=== PATIENT | male | born 1960 | race Caucasian/White ===

== ENCOUNTER → 2016-08-23 15:11 | Outpatient (CLI) | payer MEDICAID ==
[~2016-08-23 15:11] MED LIST: CYCLOBENZAPRINE10 MG PO; HYDROCHLOROTH12.5 M1 PO; HYDROCODON-ACE1 EAC7 PO; PRINIVIL20 MG PO
== END | disposition home or self-care (01) ==
LOC: D.LABREF 15:11
DX: N20.0 Calculus of kidney (principal)

== ENCOUNTER → 2016-08-27 09:24 | Outpatient (CLI) | payer MEDICAID | END | disposition home or self-care (01) | LOC: D.US 09:24 | DX: N28.89 Other specified disorders of kidney and ureter (principal) ==

== ENCOUNTER 2016-08-29 06:46 | Day surgery (SDC) | payer MEDICAID ==
[~2016-08-29] VITALS: Ht 180.3 cm; Wt 72.6 kg
[2016-08-29] MEDS ORDERED: CYCLOBENZAPRINE10 MG PO (08:10)
[2016-08-29] MEDS ORDERED: HYDROCHLOROTH12.5 M1 PO (08:11)
[2016-08-29] MEDS ORDERED: PRINIVIL20 MG PO (08:11)
[2016-08-29 08:12] VITALS: BP 114/76; Ht 180.3 cm; Wt 72.6 kg
[2016-08-29 08:24] LABS: HEMATOCRIT 48.3 % (42.0-54.0); MCHC 33.1 g/dL (31.0-37.0); MCV 90.4 fL (80.0-100.0); MEAN PLATELET VOLUME 11.8 fL (7.4-10.4); RBC 5.34 10x6/uL (4.20-6.10); RDW 12.6 % (11.5-14.5); WBC 8.6 10x3/uL (4.8-10.8)
[2016-08-29 08:31] LABS: APTT 33.6 SECONDS (22.8-39.4); INR 1.01 (0.85-1.17); PROTIME 13.1 SECONDS (11.6-15.0)
[2016-08-29 08:38] LABS: ALBUMIN 3.7 g/dL (3.4-5.0); ANION GAP 11.9 mmol/L (8-16); BILIRUBIN - TOTAL 0.4 mg/dL (0.2-1.3); CALCIUM 9.7 mg/dL (8.5-10.1); CARBON DIOXIDE 31.2 mmol/L (21.0-32.0); CREATININE - SERUM 1.1 mg/dL (0.6-1.3); POTASSIUM - SERUM 4.1 mmol/L (3.5-5.1); PROTEIN - SERUM 8.3 g/dL (6.4-8.2)
--- NOTE | 2016-08-29 13:02 | OP ---
PATIENT NAME: NEREYDA BRANDT MEDICAL RECORD: [id number] :62 LOCATION:D.OPS ADMISSION DATE: SURGEON: ORACIO BENJAMIN MD DATE OF OPERATION: 08/29/2016 SURGEON: Oracio Benjamin MD ANESTHESIA: General anesthesia by Dr. Grajeda. PREOPERATIVE DIAGNOSIS: Microhematuria. PROCEDURE: Cystoscopy. FINDINGS: No bladder tumors. SPECIMENS: None. BLOOD LOSS: None. CLINICAL HISTORY: This is a 55-year-old male being investigated for microhematuria. He has a history of drug abuse including IV drug abuse. He is currently out on parole. He is a marijuana smoker and a snuff user. CT scan revealed a large stone, 13 mm in size in the right renal pelvis and an isodense left renal mass. I had an ultrasound performed to see if this was a cyst or solid mass and the ultrasound revealed a 15-mm stone in the renal pelvis as well as a 7-mm lower pole stone in the right kidney. The left renal mass with a complex cyst with thickened septations and possible soft tissue density within it. We will require an MRI to further differentiate this left renal mass. In the meantime, he comes now to have cystoscopy done under sedation. Given his history of narcotic abuse, Dr. Grajeda decided to give him general anesthesia. The patient was given Ancef 1 gram IV incident response engineer to the OR. DESCRIPTION OF PROCEDURE: The patient was given induction of general anesthesia. He was placed in dorsal lithotomy position and prepped and draped. Lidocaine jelly was inserted into the urethra. A flexible cystoscope was used with normal saline for irrigation. Urethra is normal. Prostatic urethra shows no obstruction. No tumors were seen in the urethra or prostatic urethra. Going into the bladder, he has single ureteral orifices. No bladder tumors were seen. The scope was then withdrawn. I will make arrangements for him to have an MRI with gadolinium. TRANSINT:[id number] Voice Confirmation ID: [id number] DOCUMENT ID: [id number] ORACIO BENJAMIN MD at 1302 CC: [id number] DICTATION DATE: 08/29/16 1136 DIVISION PLANT ENGINEER: 08/29/16 1204 REG [facility] [address] [place] [address]
--- NOTE | 2016-08-29 15:55 | NUR ---
1310-DISCHARGE INSTRUCTIONS GIVEN TO PATIENT, MRI TECHS HERE TO ESCORT PT. VIA WHEELCHAIR TO MRI DEPARTMENT FOR XRAY SCAN. PT. TO BE DISCHARGED IMMEDIATELY AFTER THIS SCAN TO 'S CARE.
== END 2016-08-29 13:10 | disposition home or self-care (01) ==
LOC: D.OPS 06:46
PROVIDERS: Anesthesiology
DX: N28.1 Cyst of kidney, acquired (principal); N20.0 Calculus of kidney; R31.0 Gross hematuria; F17.200 Nicotine dependence, unspecified, uncomplicated; I10 Essential (primary) hypertension; B19.20 Unspecified viral hepatitis C without hepatic coma

== ENCOUNTER 2016-09-12 05:26 | Day surgery (SDC) | payer MEDICAID ==
[2016-09-12] VITALS (8 sets, daily range): BP systolic 101–132; BP diastolic 57–81; Ht 180.3 cm; Wt 74.8 kg
[~2016-09-12] VITALS: Ht 180.3 cm; Wt 74.8 kg
--- NOTE | ~2016-09-12 | HEMODYNAMI ---
PATIENT:NEREYDA BRANDT MEDICAL RECORD: [id number] : 62 LOCATION:SWAPNA ADMISSION DATE: 09/12/16 Generatedon:09/12/20168:04 Patient name: NEREYDA BRANDT Patient #: [id number] SSN: : 1960 Date of study: 09/12/2016 Page: Of Hemodynamic Procedure Report Patient Data Patient Demographics Procedure consent was obtained First Name: NEREYDA Gender: Male Last Name: KARLY : 1960 [facility] Initial: SANDY Age: 55 year(s) Patient #: [id number] Race: Unknown Additional ID: [id number] Contact details Address: [address] [place] [address] ROAD State: [place] City: [place] Zip code: [address] Past Medical History Allergies: No known allergies Admission Admission Data Admission Date: 09/12/2016 Admission Time: 5:26 Procedure Procedure Types Cath Procedure Peripheral Cath Diagnostic Procedure Miscellaneous Procedure Description Procedure Date Procedure Date: 09/12/2016 Procedure Start Time: 7:23 Procedure Staff Name Function Bernard Mccallum MD Performing Physician Claire Bangura RT Scrub Deepa Doss RN Nurse Devon Lawrence RT Monitor Jade Glasgow RT Monitor Procedure Data Cath Procedure Fluoroscopy Diagnostic fluoroscopy Total fluoroscopy Time: time: 10.5 min 10.5 min Diagnostic fluoroscopy Total fluoroscopy dose: 310 dose: 310 mGy mGy Contrast Material Contrast Material Type Amount (ml) Isovue 300 40 Procedure Medications Medication Administration Route Dosage Oxygen NC 3 l/min Lidocaine 1% added to field 20 Heparin Flush Bag added to field 3 bags (1000units/500ml NS) Versed I.V. 1 mg Fentanyl I.V. 50 mcg Rocephin I.V. 1 Versed I.V. 1 mg Fentanyl I.V. 50 mcg Fentanyl I.V. 50 mcg Versed I.V. 0.5 mg Versed I.V. 0.5 mg Fentanyl I.V. 50 mcg Hemodynamics Rest Heart Rate: 71 (bpm) Snapshots Pre Cath Intra NCS Post Cath Vital Signs Time Heart Resp SPO2 NIBP (mmHg) Rhythm Pain Sedation Rate (ipm) (%) Status Level (bpm) 7:13:43 74 12 99 117/74(90) NSR 0 (11) 10(A) , No pain 7:17:49 75 15 100 136/114(129) NSR 0 (11) 10(A) , No pain 7:22:01 69 16 99 118/79(93) NSR 0 (11) 10(A) , No pain 7:26:10 74 11 97 126/81(92) NSR 0 (11) 10(A) , No pain 7:30:20 72 10 97 127/81(91) NSR 0 (11) 9(A) , No pain 7:34:32 73 9 96 142/81(107) NSR 0 (11) 9(A) , No pain 7:38:42 76 10 96 129/87(97) NSR 0 (11) 9(A) , No pain 7:42:56 84 8 96 136/77(97) NSR 0 (11) 9(A) , No pain 7:47:08 84 9 95 126/73(94) NSR 0 (11) 9(A) , No pain 7:51:22 81 11 96 127/74(89) NSR 0 (11) 9(A) , No pain 7:55:36 81 26 96 126/76(93) NSR 0 (11) 9(A) , No pain 7:59:48 81 11 96 134/76(95) NSR 0 (11) 9(A) , No pain 8:03:48 No Cuff NSR 0 (11) 9(A) , No pain Medications Time Medication Route Dose Verified Delivered Reason Notes Eff ectiveness by by 7:17:01 Oxygen NC 3 Deepa Deepa Per protocol l/min King JUDITH Doss RN 7:17:10 Lidocaine 1% added 20ml Deepa Deepa for local to vial King JUDITH Doss RN anesthetic field 7:18:09 Heparin Flush added 3 Deepa Deepa used for Bag to bags King JUDITH Doss RN procedure (1000units/500ml field NS) 7:21:33 Versed I.V. 1 mg Deepa Deepa for sedation King JUDITH Doss RN 7:21:40 Fentanyl I.V. 50 Deepa Deepa for sedation mcg King JUDITH Doss RN 7:27:52 Rocephin I.V. 1gm Deepa Deepa prophylactic King JUDITH Doss RN 7:27:57 Versed I.V. 1 mg Deepa Deepa for sedation King JUDITH Doss RN 7:28:02 Fentanyl I.V. 50 Deepa Deepa for sedation mcg King JUDITH Doss RN 7:35:36 Fentanyl I.V. 50 Deepa Deepa for sedation mcg King JUDITH Doss RN 7:40:19 Versed I.V. 0.5 Deepa Deepa for sedation mg King JUDITH Doss RN 7:50:36 Versed I.V. 0.5 Deepa Deepa for sedation mg King JUDITH Doss RN 7:57:35 Fentanyl I.V. 50 Deepa Deepa for sedation mcg King JUDITH Doss RN Procedure Log Time Note 7:02:56 Deepa King JUDITH sent for patient. Start room use. 7:03:07 Time tracking: Regular hours 7:03:13 Plan of Care:Hemodynamics will remain stable., Cardiac rhythm will remain stable., Comfort level will be maintained., Respiratory function will remain adequate., Patient/ family verbilizes understanding of procedure., Procedure tolerated without complication., Recovers from procedure without complications.. 7:03:21 Patient received from Outpatients to IR Alert and oriented. Tansferred to table in Prone position. 7:03:22 Correct patient and procedure confirmed by team. 7:03:25 Signed procedure consent form obtained from patient. 7:03:26 ECG and BP/O2 sat monitors applied to patient. 7:03:27 Full Disclosure recording started 7:03:27 7:03:31 H&P Date Dictated: 09/12/2016 H&P Addendum completed by physician on day of procedure. (MUST COMPLETE FOR ALL OUTPATIENTS). 7:03:32 Pre-procedure instructions explained to patient. 7:03:32 Pre-op teaching completed and patient verbalized understanding. 7:03:34 Family in waiting room. 7:03:37 Patient NPO since Midnight. 7:07:49 Patient allergic to No known allergies 7:07:54 Is the patient allergic to Iodine/contrast media? No. 7:07:57 Is patient on blood thinner?No 7:07:59 Patient diabetic? No. 7:08:04 7:08:06 ----Pre-sedation anethsthesia assessment.---- 7:08:11 Previous problem with sedation/anesthesia? No ? 7:08:15 Snore? No 7:08:18 Sleep apnea? No 7:08:21 Deviated septum? No 7:08:24 Opens mouth fully? Yes 7:08:26 Sticks out tongue? Yes 7:08:30 Airway obstruction? No ? 7:08:39 Dentures? No loose tooth 7:08:50 IV patent on arrival in left forearm with 0.9% NaCl at KVO. 7:09:32 right flank area was prepped with chlora-prep and draped in sterile fashion 7:10:05 Alarms reviewed by Zuleika Patel 7:10:06 Sharps counted by scrub and verified by Andrew 7:10:27 7:10:32 Use device set IR Diagnostic 7:10:34 Sterile Angiographic Pack opened to sterile field. 7:10:35 Bag Decanter opened to sterile field. 7:10:57 KIT, INTRODUCER ACCUSTICK II W/C opened to sterile field. 7:12:31 Vital chart was started 7:12:33 Baseline sample Acquired. 7:12:39 7:17:01 Oxygen 3 l/min NC was administered by Deepa Doss RN; Per protocol; 7:17:10 Lidocaine 1% 20ml vial added to field was administered by Deepa Doss RN; for local anesthetic; 7:18:09 Heparin Flush Bag (1000units/500ml NS) 3 bags added to field was administered by Deepa Doss RN; used for procedure; 7:18:42 Baseline sample Acquired. 7:20:57 Physician arrived 7::59 Final Timeout: patient, procedure, and site verified with staff and physician. All members of the team are in agreement. 7::59 --------ALL STOP TIME OUT------ 7:21:10 rt flank site verified by team. 7:21:16 Physical assessment completed. ASA score P 3 - A patient with severe systemic disease as per Bernard Mccallum MD. 7:21:23 Sedation plan: IV Moderate Sedation Versed, Fentanyl, Lidocaine 7:21:33 Versed 1 mg I.V. was administered by Deepa Doss RN; for sedation; 7:21:40 Fentanyl 50 mcg I.V. was administered by Deepa Doss RN; for sedation; 7:23:23 Procedure started. 7:23:33 Local anesthetic to right flank with Lidocaine 1% by Bernard Mccallum MD.INITIAL ACCESS ONLY 7:27:52 Rocephin 1gm I.V. was administered by Deepa Doss RN; prophylactic; 7:27:57 Versed 1 mg I.V. was administered by Deepa Doss RN; for sedation; 7:28:02 Fentanyl 50 mcg I.V. was administered by Deepa Doss RN; for sedation; 7:33:[address] .035 145 glide wire opened to sterile field. 7:35:36 Fentanyl 50 mcg I.V. was administered by Deepa Doss RN; for sedation; 7:40:19 Versed 0.5 mg I.V. was administered by Deepa Doss RN; for sedation; 7:41:33 EV3 NITINOL .018 80CM guide wire opened to sterile field. 7:50:36 Versed 0.5 mg I.V. was administered by Deepa Doss RN; for sedation; 7:52:59 Terumo 5FR STRAIGHT 65CM glide catheter opened to sterile field. 7:55:37 Procedure ended.(Physican Out) 7:57:19 Fluoroscopy time 10.50 minutes. 7:57:29 Fluoroscopy dose: 310 mGy 7:57:29 Flurop Dose total: 310 7:57:35 Fentanyl 50 mcg I.V. was administered by Deepa Doss RN; for sedation; 7:58:03 Contrast amount:Isovue 300 40ml. 7:58:06 Sharps counted by scrub and verified by R.N. 7:58:13 Insertion/operative site no bleeding no hematoma. 7:58:21 Post-op/insertion site Right Abdominal area dressed using a 4 x 4 and Tegaderm. 7:58:28 Post Abdominal area:stable 7:58:30 Post Procedure Pulses reassessed and unchanged 7:58:38 Post-procedure physical assessment completed. ASA score P 3 - A patient with severe systemic disease as per Bernard Mccallum MD. 7:58:40 Post procedure instruction explained to patient.Patient verbalizes understanding. 8:02:19 Procedure and supply charges have been captured, reviewed, submitted and are correct. 8:02:30 Report given to Outpatients. 8:02:34 Patient transfered to Outpatients with Stretcher. 8:04:33 Vital chart was stopped Device Usage Item Name Manufacture Quantity Catalog Hospital Part Current Minimal Lot# / Number Charge Number Stock Stock Serial# Code Sterile Cardinal [address] [id number] 5 Angiographic Health Pack Bag Decanter Microtek 1 [id number] 93473 [id number] 5 [employer] KIT, [place] 1 [id number] 316349 709217 763359 5 INTRODUCER Scientific ACCUSTICK II W/C Cook [employer] 1 [id number] [id number] [id number] 5 [id number] ROADRUNNER .035 145 glide wire EV3 NITINOL Ev3 1 [id number] 282755 5 .018 80CM guide wire Terumo 5FR Terumo 1 CG505 [id number] [id number] 5 STRAIGHT 65CM glide catheter Signature Audit [place] Stage Time Signature Unsigned Intra-Procedure 09/12/2016 Devon 8:04:30 AM Shuffield RT (R) (CV) Signatures Monitor : Devon Signature : Jayield RT Date : Time : Monitor : Jade Glasgow RT Signature : Date : Time : [place] [address] [place] [address]
[~2016-09-12 05:26] MED LIST changes: -HYDROCODON-ACE1 EAC7 PO
[2016-09-12 06:42] LABS: BASOPHILS 0.9 % (0.0-2.0); HEMOGLOBIN 15.3 g/dL (13.5-17.5); IMMATURE GRANULOCYTES 0.3 % (0-5); LYMPHOCYTES 30.1 % (15-50); MCH 30.4 pg (26.0-34.0); MCV 89.3 fL (80.0-100.0); MEAN PLATELET VOLUME 11.7 fL (7.4-10.4); NEUTROPHILS 46.7 % (40-80); PLATELET COUNT 172 10x3/uL (130-400); RBC 5.04 10x6/uL (4.20-6.10); RDW 12.6 % (11.5-14.5); WBC 7.4 10x3/uL (4.8-10.8)
[2016-09-12 06:55] LABS: ALBUMIN 3.7 g/dL (3.4-5.0); ANION GAP 11.8 mmol/L (8-16); BILIRUBIN - TOTAL 0.39 mg/dL (0.2-1.3); CALCIUM 9.7 mg/dL (8.5-10.1); CARBON DIOXIDE 28.1 mmol/L (21.0-32.0); CREATININE - SERUM 1.2 mg/dL (0.6-1.3); POTASSIUM - SERUM 3.9 mmol/L (3.5-5.1); PROTEIN - SERUM 8.3 g/dL (6.4-8.2)
[2016-09-12 07:08] LABS: APTT 32.9 SECONDS (22.8-39.4); INR 0.94 (0.85-1.17); PROTIME 12.5 SECONDS (11.6-15.0)
--- NOTE | 2016-09-12 08:23 | NUR ---
TO RM 1190 FROM [employer], REPORT CALLED FROM YUMIKO BARR PT HAS A NEPH TUBE PLACED IN HIS MID BACK AREA WIT A 4X4 COVE WITH OPSITE RIGHT BACK, RESTING ON RIGHT SIDE WITH EYES CLOSED RESP EVEN ON 2 L NC O2, HOB FLAT
--- NOTE | 2016-09-12 08:32 | NUR ---
VS TAKEN AND PLACE ON POST OP SHEET
--- NOTE | 2016-09-12 14:40 | NUR ---
PATIENT RECEIVED TO ROOM 1235. HE IS AWAKE AND ALERT, DROWSY. O2 AT 3LITERS. HIS OXYGEN SATURATION IS VARIABLE, FALLS HE SLEEPS. HIS DRESSING TO THE RLQ OF THE POSTERIOR BACK IS C/D/I. DRAINAGE IN THE NEPHROSTOMY TUBE IS SEROUSSANGUINEUS. VSS. MONITORING. CALL [facility]
--- NOTE | 2016-09-12 15:30 | NUR ---
PATIENT IS AWAKE AND ALERT, REQUESTING HIS PERSONAL BELONGINGS FROM OUTPATIENTS AND HIS WALLET FROM THE LOCK UP. OUTPATIENT'S NOTIFIED (RIKY) AND ER ADMISSIONS WAS NOTIFIED.
--- NOTE | 2016-09-12 16:30 | NUR ---
PATIENT SITTING UP CAMERON ISAAC, VISITING WITH HIS ON THE PHONE. HE ASKED THAT I SPEEK WITH HER. SHE IS CONCERNED WHEN HE MIGHT BE RELEASED TO GO HOME TOMORROW. ADVISED HER TO CALL BACK TOMORROW AROUND NOON. VSS. RIGHT NEPHROTOMY TUBE IS PATENT TO THE DIALLO COLLECTION BAG. DRAINAGE REMAINS THIN, SEROUS. HE DID URINATE ABOUT 30CC OF BRIGHT RED LIQUID.
--- NOTE | 2016-09-12 17:10 | NUR ---
HTN MEDICATIONS HELD AT THIS TIME TO MONITOR HIS RECOVERY AND NEED FOR THEM. HIS PRESSURES ARE CURRENTLY WNL FOR AN ADULT MALE. IVF INITIATED TO KVO. PATIENT DENIES PAIN AT THIS TIME.
--- NOTE | 2016-09-12 17:55 | NUR ---
ANNABELLA HAS EATEN HIS SUPPER AND IS WITHOUT NEEDS AT THIS TIMES.
--- NOTE | 2016-09-12 19:35 | NUR ---
PT LYING IN BED AWAKE, C/O ABD PAIN, WILL TREAT WITH ORDERED MEDS, NO OTHER DISTRESS NOTED, R NEPHROSTOMY TUBE DRAINING SS FLUID TO DIALLO BAG, DSG IS CDI, SCD'S IN PLACE, REPOSITIONED IN BED FOR COMFORT, JHOANA WELL, SR'S UP, CL IN REACH, WILL MONITOR
--- NOTE | 2016-09-12 19:50 | NUR ---
PRN NORCO GIVEN FOR C/O R SIDE PAIN 03/18, JHOANA WELL, CL IN REACH
--- NOTE | 2016-09-12 21:43 | NUR ---
PRN MORPHINE GIVEN FOR C/O ABD PAIN 03/18, REPOSITIONED IN BED, JHOANA WELL, CL IN REACH
--- NOTE | 2016-09-12 23:45 | NUR ---
LYING IN BED WITH EYES CLOSED, EASILY AROUSED, DENIES PAIN OR NEEDS, FALL PRECAUTIONS IN PLACE, CL IN REACH
[2016-09-13] VITALS: BP 122/77
--- NOTE | 2016-09-13 01:15 | NUR ---
RESTING WITH EYES CLOSED, RESP WITH EASE, NO SS OF DISTRESS NOTED, CL IN REACH
--- NOTE | 2016-09-13 03:51 | NUR ---
NO CHANGES SINCE LAST ROUND, SAFETY MEASURES IN PLACE, CL IN REACH
[2016-09-13 04:00] VITALS: BP 138/68
--- NOTE | 2016-09-13 08:43 | OP ---
PATIENT NAME: NEREYDA BRANDT MEDICAL RECORD: [id number] :62 LOCATION:D.M2 D.2135 ADMISSION DATE: SURGEON: JOSELUIS BENJAMIN MD DATE OF OPERATION: 09/12/2016 SURGEON: Joseluis Benjamin MD. ANESTHESIA: General anesthesia by Dr. Mcintyre and Ricco Roblero CRNA. PREOPERATIVE DIAGNOSIS: A 15 mm right renal stone and 7 mm lower pole renal stone on the right side. FINDINGS: Large 12.5 mm lower pole renal stone on the right side. PROCEDURES: Right percutaneous nephrolithotomy, cystoscopy. SPECIMENS: Renal stone. COMPLICATIONS: None. ESTIMATED BLOOD LOSS: None. CLINICAL HISTORY: The patient is a 55-year-old male with a prior history of kidney stones. He complained of some mildly right-sided flank pain. He went to another hospital and he had a CT scan performed, which showed a 12 mm renal stone on the right side. He then came to and I repeated imaging on him and we found a 12 to 12.5 mm radiodense stone in the lower pole. An ultrasound had claimed that there was a 15 mm stone and a 7 mm stone in the lower pole. However, today we only saw 1 radiodense stone which was the 12.5 mm stone. He comes in now to have the stone removed by right percutaneous nephrolithotomy. This morning, he went to the interventional radiology suite. Dr. Bernard Mccallum inserted a right nephroureteral tube right into the calyx containing the stone. Only 1 radiodense stone, fairly large in size was seen. DESCRIPTION OF PROCEDURE: The patient was placed into prone position on the Ridge Frame. This was after induction of general anesthesia. The patient had been given Rocephin 1 gram IV by interventional radiology earlier this morning and he did not need any further antibiotics today. Once he was in prone position, we removed the dressing over the nephroureteral catheter. The site around the catheter and the catheter itself was prepped. We then used a craniotomy draped with a small hole cut in it to serve as our working draped. The nephroureteral catheter was placed through the hole of the draped. Under fluoroscopy, we could see the nephroureteral catheter going adjacent to the stone in the lower pole. An Amplatz Super Stiff wire was placed down the lumen of the nephroureteral tube. We confirmed that the wire went into the bladder. The nephroureteral tube was then removed, leaving the Amplatz Super Stiff wire in place. An incision was made in the back on either side of the nephroureteral tube access site to lengthen the incision to over 1 cm. A dual-lumen catheter was then placed over the Super Stiff wire and down into the proximal ureter. Through the second lumen of the dual-lumen catheter, we inserted a sensor guidewire down the bladder. Once the 2 wires were in position, we then removed the dual-lumen catheter, leaving the [address] The sensor wire was then clamp to the draped and acted as a safety wire. At this point, I tried to perform cystoscopy on the patient with the intention of drawing one of the wires out through the urethra in order to clamp it off to prevent any proximal OPERATIVE REPORT [id number] NEREYDA BRANDT migration of the wire. The patient using a flexible cystoscope had normal urethra. Prostatic urethra is nonobstructive. I could not really see the bladder too well because of the murkiness leading from the nephroureteral access. The wire was where visible. I tried to pull on the wire with the flexible graspers, but they were too weak to move these relatively stiff wires. I therefore abandon any further attempts to get the wires out this way. The scope was removed. We then proceeded with the nephrostomy access. Over Amplatz Super Stiff wire, a NephroMax dilation balloon was inserted. We made sure the tip was at the UP junction level. Then, tract was then dilated by inserting contrast with 18 atmospheres of pressure into the dilation balloon. Over the dilation balloon, a 30-Botswanan working sheath was placed. Once the sheath was in position, we deflated the dilation balloon and removed it entirely. The nephroscope was then put down through the sheath into the kidney. We first visualize the UP junction, which was still intact. Blood clots were removed using grasping forceps. Under fluoroscopy, we could ____ the scope into the lower pole calyx. Here, we found a large 12.5 mm stone. Using [employer] stone grasper, I was unable to completely grasped and removed this large long stone in 1 go. Then, we performed further nephroscopy and found no other stones. The scope was then removed. The 24-Botswanan Malecot nephrostomy tube was inserted down the sheath with a stylet to prevent the Malecot ____ from dilating. Once we were in, the Malecot stylet the dome our caught style was removed to allow the wings to expand. Also, the Amplatz Super Stiff wire was entirely removed. A nephrostogram confirmed that we were indeed within the renal pelvis. There was some extravasation contrast around the tract. I then removed entirely the working sheath as well as the safety wire. The nephrostomy tube was sutured in the skin using a 2-0 silk. This was then put to Quintanilla bag drainage. The patient was then turned back into supine position. A straight in and out catheterization was done to drain his bladder. The patient was awakened and brought to recovery room. TRANSINT:[id number] Voice Confirmation ID: [id number] DOCUMENT ID: [id number] JOSELUIS BENJAMIN MD at 0843 CC: [id number] DICTATION DATE: 09/12/16 1337 BANQUET CAPTAIN: 09/12/[address] [place] [address] [address] [place] [address]
[2016-09-13 09:36] VITALS: BP 128/85
[2016-09-13] MEDS ORDERED: HYDROCODON-ACE1 EAC7 PO (09:46)
--- NOTE | 2016-09-13 10:59 | NUR ---
IV TO LEFT HAND REMOVED CATHETER INTACT. PT LEAVING VIA WHEELCHAIR VIA PRIVATE VEHICLE AT THIS TIME
--- NOTE | 2016-09-13 11:00 | NUR ---
PT SENT WITH DISCHARGE PAPERS AND AND 1 PRESCRIPTION FOR NARCOTIC AT THIS TIME
== END 2016-09-13 11:05 | disposition home or self-care (01) ==
LOC: D.OPS 05:26 → D.M2 05:26 → D.RAD 08:00 → D.OPS 08:00 → D.PAN 08:00 → D.M2 14:03 → D.OPS 09-13 11:05
PROVIDERS: Anesthesiology; General Practice; Urology
DX: N20.0 Calculus of kidney (principal); I10 Essential (primary) hypertension; K21.9 Gastro-esophageal reflux disease without esophagitis; B19.20 Unspecified viral hepatitis C without hepatic coma